=== PATIENT | male | born 1960 | race Caucasian/White ===

== ENCOUNTER 2016-10-12 13:09 | Outpatient (CLI) | payer OTHER ==
[2013-10-15 19:10] VITALS: BP 132/68
== END 2016-10-12 13:10 ==
LOC: LAB 13:09
PROVIDERS: ATTEND Family Medicine
DX: R70.0 Elevated erythrocyte sedimentation rate (principal); I26.92 Saddle embolus of pulmonary artery without acute cor pulmonale; Z51.81 Encounter for therapeutic drug level monitoring; Z79.01 Long term (current) use of anticoagulants
CPT/HCPCS: 36415; 85610; 85651

== ENCOUNTER 2016-12-13 14:47 | Outpatient (CLI) | payer MEDICAID ==
[2013-10-15 19:10] VITALS: BP 132/68
== END 2016-12-13 14:55 ==
LOC: LAB 14:47
PROVIDERS: ATTEND Family Medicine
DX: Z51.81 Encounter for therapeutic drug level monitoring (principal); Z79.01 Long term (current) use of anticoagulants; I26.92 Saddle embolus of pulmonary artery without acute cor pulmonale
CPT/HCPCS: 36415; 85610

== ENCOUNTER 2017-02-15 10:49 | Outpatient (CLI) | payer MEDICAID ==
[2013-10-15 19:10] VITALS: BP 132/68
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
== END 2017-02-15 10:50 ==
LOC: RAD 10:49
PROVIDERS: ATTEND Family Medicine
DX: M25.512 Pain in left shoulder (principal); M25.511 Pain in right shoulder
CPT/HCPCS: 73030

== ENCOUNTER 2018-05-09 14:28 | Outpatient (CLI) | payer MEDICARE, OTHER ==
[2013-10-15 19:10] VITALS: BP 132/68
[2018-05-09 14:58] LABS: BASOPHILS % 0.5 (0.0-1.5); EOSINOPHILS % 3.3 % (0.0-6.8); MEAN CORPUSCULAR HEMOGLOBIN 31.4 pg (28.0-34.0); MEAN CORPUSCULAR VOLUME 93.8 fl (80.0-100.0); MONOCYTES % 4.6 % (0.0-11.0); NEUTROPHILS # 4.4 # k/uL (1.4-7.7)
[2018-05-09 15:36] LABS: eGFR (African) > 60; eGFR (Non-African) > 60
== END 2018-05-09 14:30 ==
LOC: LAB 14:28
PROVIDERS: ATTEND Family Medicine
DX: Z79.899 Other long term (current) drug therapy (principal); E29.1 Testicular hypofunction; E78.00 Pure hypercholesterolemia, unspecified
CPT/HCPCS: 36415; 80053; 80061; 84402; 85025

== ENCOUNTER 2018-08-31 11:08 | Outpatient (CLI) | payer MEDICARE ==
[2013-10-15 19:10] VITALS: BP 132/68
== END 2018-08-31 11:10 ==
LOC: LAB 11:08
PROVIDERS: ATTEND Family Medicine
DX: I82.409 Acute embolism and thrombosis of unspecified deep veins of unspecified lower extremity (principal)
CPT/HCPCS: 36415; 85610

== ENCOUNTER 2018-10-25 10:23 | Outpatient (CLI) | payer MEDICARE, OTHER ==
[2013-10-15 19:10] VITALS: BP 132/68
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
== END 2018-10-25 10:25 ==
LOC: POD 10:23
PROVIDERS: ATTEND Podiatrist Foot & Ankle Surgery
DX: B35.8 Other dermatophytoses (principal); R26.0 Ataxic gait
CPT/HCPCS: 11719

== ENCOUNTER 2019-08-23 11:12 | Outpatient (CLI) | payer MEDICARE ==
[2013-10-15 19:10] VITALS: BP 132/68
== END 2019-08-23 11:17 ==
LOC: LAB 11:12
PROVIDERS: ATTEND Family Medicine
DX: E29.1 Testicular hypofunction (principal)
CPT/HCPCS: 36415; 84402